=== PATIENT | male | born 1975 | race Caucasian/White ===

== ENCOUNTER 2017-09-03 19:38 | Emergency (ER) | payer SELFPAY ==
[2017-09-03 20:20] VITALS: BP 127/84; PULSE 82; RESP 20; TEMP 97.9; O2SAT 97
--- NOTE | 2017-09-03 20:55 | C.PDOC ---
History Of Present Illness 42 y/o male presenting to the ER for evaluation of itchy rash to the bilateral hands that have been chronic for the past 6-7 months. 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 Pt admits, was seen by PMD in April 2017 when was given cream without significant improvement. Otherwise, he denies any known trauma or injury , denies headache, dizziness, throat swelling or tightness, chest pain, SOB, wheezing, CP, dyspnea, denies weakness, sensory or vascular deficits to B/L UEs. Patient reports he took Benadryl at 7:30. Pt reports, has scheduled Derm appointment in October 10, 2017. Time Seen by Provider: 09/03/17 20:39 Chief Complaint (Nursing): Abnormal Skin Integrity History Per: Patient History/Exam Limitations: no limitations Onset/Duration Of Symptoms: Persistent (x 6-7 months) Current Symptoms Are (Timing): Still Present Location Of Injury: Right: Hand, Left: Hand Quality Of Symptoms: Itching Past Medical History Reviewed: Historical Data, Nursing Documentation, Vital Signs Vital Signs: Last Vital Signs Temp 97.9 F 09/03/17 20:15 Pulse 82 09/03/17 20:15 Resp 20 09/03/17 20:15 BP 127/84 09/03/17 20:15 Pulse Ox 97 09/03/17 20:57 - Medical History PMH: No Chronic Diseases Other Surgeries: Left lung surgery 1997 Family History: States: Unknown Family Hx - Social History Hx Alcohol Use: No Hx Substance Use: No Review Of Systems Except As Marked, All Systems Reviewed And Found Negative. Constitutional: Negative for: Fever, Chills ENT: Negative for: Throat Swelling (or tightening) Cardiovascular: Negative for: Chest Pain Respiratory: Negative for: Shortness of Breath, Wheezing Skin: Positive for: Rash (to B/L hands) Neurological: Negative for: Headache, Dizziness Physical Exam - Physical Exam Appears: Well, Non-toxic, No Acute Distress Skin: Warm, Dry, Rash (diffuse erythema to B/L hand's finger, palms with scattered small bullous rash to dorsal asepct b/l hands. No edema, no cellulitis , no proximal streaking, no flactualnce.) Head: Normacephalic Eye(s): bilateral: PERRL Nose: No Flaring, No Discharge Oral Mucosa: Moist, No Drooling Throat: No Drooling, Other (Uvula midline, no edema.) Neck: Supple Chest: Symmetrical Cardiovascular: Rhythm Regular, No Murmur, No JVD Respiratory: No Decreased Breath Sounds, No Accessory Muscle Use, No Stridor Extremity: Normal ROM, No Tenderness, No Pedal Edema, Capillary Refill (less than 2sec to B/L hands), No Deformity Neurological/Psych: Oriented x3, Normal Speech, Normal Motor, Normal Sensation, Normal Reflexes ED Course And Treatment O2 Sat by Pulse Oximetry: 97 (RA) Pulse Ox Interpretation: Normal Progress Note: Pt given pepcid and prednisone in the ER. On re-evaluation, pt is awake, alert, not in any apparent distress. tolerate PO well in ED. PUlseOx 97% RA. ENT: no acute finding. Uvula midline, no edema. neck: SUpple, (-) meningeal sign. Lungs: CTA B/L, BS equal B/L. Abd: benign. Skin: exam c/ w contact dermatitis likely sec to chemical exosure. Patient advised. Ref. to F/U with PMD, Derm in 2-3 days for re-eavl. Disposition Counseled Patient/Family Regarding: Diagnosis, Need For Followup, Rx Given - Disposition Referrals: Britton Townsend MD [Staff Provider] - Disposition: HOME/ ROUTINE Disposition Time: 20:50 Condition: STABLE Additional Instructions: USE GLOVES AT WORK, AVOID EXPOSURE TO KNOWN ALLERGEN TAKE MEDICATION PRESCRIBED FOLLOW UP WITH PMD, DERMATOLOGY IN 1-2 DAYS FOR RE-EVALUATION. RETURN TO ED IF ANY WORSENING OR NEW CHANGES. Prescriptions: Famotidine [Pepcid] 20 mg PO BID #10 tab Miconazole Nitrate/Zinc Ox/Pet [Vusion Ointment] 1 oin TP BID #1 tub Prednisone [Deltasone] 40 mg PO DAILY #8 tablet Instructions: Contact Dermatitis (ED) Forms: [employer] (Bel[place]ian) - Clinical Impression Clinical Impression: Contact dermatitis - PA / COMPUTER [employer]WARE ENG[employer] / Resident Statement MD/DO has reviewed & agrees with the documentation as recorded. - Scribe Statement The provider has reviewed the documentation as recorded by the Scribe (Leidy Irwin) All medical record entries made by the Scribe were at my direction and personally dictated by me. I have reviewed the chart and agree that the record accurately reflects my personal performance of the history, physical exam, medical decision making, and the department course for this patient. I have also personally directed, reviewed, and agree with the discharge instructions and disposition.
== END 2017-09-03 21:11 | disposition home or self-care (01) ==
LOC: C.ER 19:38
DX: L25.9 Unspecified contact dermatitis, unspecified cause (principal)